=== PATIENT | male | born 1950 | race Two or more races ===

== ENCOUNTER 2021-01-10 12:30 | Emergency (ER) | payer MEDICARE ==
[~2021-01-10] VITALS: Ht 170.2 cm; Wt 93.4 kg
[2021-01-10 13:31] LABS: BASOPHILS % (AUTO) 0 % (0-1); EOSINOPHILS % (AUTO) 0 % (1-7); LYMPHOCYTES % (AUTO) 20 % (22-44); MEAN CORPUSCULAR HEMOGLOBIN 32.1 pg (27.5-34.5); MEAN CORPUSCULAR HGB CONC 34.4 g/dL (33.2-36.2); MONOCYTES % (AUTO) 7 % (2-9); NEUTROPHILS % (AUTO) 73 % (42-75); PLATELET COUNT 241 x10^3/uL (130-400); RED BLOOD COUNT 4.59 x10^6/uL (4.38-5.82); RED CELL DISTRIBUTION WIDTH 13.8 % (9.4-14.8)
[2021-01-10 13:45] LABS: ALBUMIN 3.9 g/dL (3.4-5.0); CALCIUM 8.6 mg/dL (8.5-10.1); CHLORIDE 110 mmol/L (98-107)
[2021-01-10 13:51] LABS: ALANINE AMINOTRANSFERASE 25 U/L (12-78); ALKALINE PHOSPHATASE 103 U/L (45-117); ANION GAP 6 mmol/L (5-15); BILIRUBIN,TOTAL 0.5 mg/dL (0.2-1.0); CREATININE 0.72 mg/dL (0.7-1.3)
--- NOTE | 2021-01-10 15:23 | NUR ---
recheck vs at 1523
[2021-01-10 15:58] VITALS: BP 194/101
--- NOTE | 2021-01-10 16:02 | NUR ---
FIRST CONTACT: HIGH BP LAST NIGHT 200/100. PT REPORTS DIZZY AND CASTRO. PT DENIES CP, RECENT TRAUMA, NO VISION CHANGES. NO MEDICAL HX. PT ATTACHED TO MONITORS. VSS. BHAKTA. POSTIONED TO COMFORT. CECI BURNHAM TO BEDSIDE FOR EVALUATION.
[2021-01-10] MEDS ORDERED: KETOROLAC 30 MG/1 ML ONE (16:08)
[2021-01-10] MEDS ORDERED: ACETAMINOPHEN 325 MG TABLET ONE (16:08)
[2021-01-10] MEDS ORDERED: KETOROLAC 30 MG/1 ML IM ONE (16:30)
[2021-01-10] MEDS ORDERED: ACETAMINOPHEN 325 MG TABLET PO ONE (16:30)
--- NOTE | 2021-01-10 16:42 | NUR ---
Patient given discharge instructions and they have confirmed that they understand the instructions. Patient ambulatory with steady gait. NAD, all questions answered appropriately, denies additional needs at this time. No personal belongings left in room after discharge.
== END 2021-01-10 16:44 | disposition home or self-care (01) ==
LOC: ED 16:30
DX: I10 Essential (primary) hypertension (principal); R51.9 Headache, unspecified; R00.1 Bradycardia, unspecified; R11.2 Nausea with vomiting, unspecified
CPT/HCPCS: 36415; 70450; 71045; 80053; 85025; 93005; 96372; 99285; J1885